=== PATIENT | male | born 1955 | race Caucasian/White ===

== ENCOUNTER → 2017-09-26 | Outpatient (CLI) | payer BC ==
[2017-09-26 12:31] LABS: Anion Gap 6 mmol/L; Blood Urea Nitrogen 25 mg/dL (9-20); Calcium 9.8 mg/dL (8.4-10.2); Carbon Dioxide 32 mmol/L (22-30); Chloride 106 mmol/L (98-107); Glucose 92 mg/dL (74-99); Sodium 144 mmol/L (137-145)
[2017-09-26 12:33] LABS: Potassium 5.5 mmol/L (3.5-5.1)
--- NOTE | 2017-09-26 13:16 | CT ---
EXAMINATION TYPE: CT angio chest DATE OF EXAM: 09/26/2017 COMPARISON: Radiographs 10/24/2009 HISTORY: 62-year-old male dilated aortic root. TECHNIQUE: Contiguous axial scanning of the chest performed without and with IV Contrast, patient inj ected with 100 ml mL of Omnipaque 300. Coronal/sagittal MIP reconstructions performed. 3-D reconstruc tions generated on a dedicated independent workstation. CT DLP: 593.00 mGycm Automated exposure control for dose reduction was used. FINDINGS: Median sternotomy wires are present with mitral annuloplasty ring. No pericardial effusion. Heart is normal size. The aortic root measures 5.6 cm on coronal series 12 image 13. Ascending aorta ectatic at 3.8 cm. Conventional arch vessel branching anatomy. Upper descending thoracic aorta is mildly aneurysmal at 3.5 cm. Mild tortuosity of the descending aorta. Borderline ectasia lower descending thoracic aorta at 2.5 cm. Initial noncontrast series shows no evidence for acute intracerebral hematoma. There is no evidence for aortic dissection. There is moderate left and trace right gynecomastia. Prominent 1 cm right tracheobronchial angle lymph node probably reactive/post inflammatory. Evaluation of the lungs shows mild emphysema and strandy areas of atelectasis or scarring. No focal c onsolidation or pleural effusion otherwise seen. Visualized upper abdomen shows a large 7.5 cm cyst in the right kidney, tiny inferior splenule, a 2.4 cm cystic lesion in the left kidney possibly with some internal septations, and a 1 cm nodular focus of arterial phase enhancement in the central right liver lobe probably flash filling hemangioma or v ascular shunting. Bones: No osseous destructive process. IMPRESSION: 1. Aneurysmal aortic root measuring 5.6 cm on coronal series. 2. 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 3. COPD with mild emphysema. 4. A 2.4 cm cystic lesion in the left kidney may have some internal complexity. Renal ultrasound can further evaluate.
== END | disposition home or self-care (01) ==
LOC: RADCTMAIN 10:59
PROVIDERS: ATTEND Internal Medicine Clinical Cardiac Electrophysiology
DX: I71.2 Thoracic aortic aneurysm, without rupture (principal); J43.9 Emphysema, unspecified; Z98.890 Other specified postprocedural states; Q25.44 Congenital dilation of aorta
CPT/HCPCS: 80048; 71275; 36415; Q9967

== ENCOUNTER 2018-01-07 14:07 | Emergency (ER) | payer BC ==
[2018-01-07] MEDS ORDERED: MORPHINE SULFATE 2 MG/ML SYRINGE IVP STA ×2 (15:22→18:07)
[2018-01-07] MEDS ORDERED: SODIUM CHLORIDE 0.9% 1,000 ML IV ONE (15:22)
[2018-01-07] MEDS ORDERED: SODIUM CHLORIDE 0.9% 1,000 ML IV SCH (15:30)
[2018-01-07 16:03] LABS: Basophils % (A) 0 %; Eosinophils # (A) 0.1 k/uL (0-0.7); Eosinophils % (A) 1 %; HCT 32.7 % (39.0-53.0); Lymphocytes # (A) 0.8 k/uL (1.0-4.8); Lymphocytes % (A) 12 %; MCH 30.8 pg (25.0-35.0); MCHC 33.7 g/dL (31.0-37.0); MCV 91.4 fL (80.0-100.0); Mean Platelet Volume 8.2; Monocytes # (A) 0.5 k/uL (0-1.0); Monocytes % (A) 7 %; Neutrophils # (A) 5.3 k/uL (1.3-7.7); Neutrophils % (A) 79 %; Platelet Count 149 k/uL (150-450); RBC 3.58 m/uL (4.30-5.90); RDW 13.7 % (11.5-15.5); WBC 6.7 k/uL (3.8-10.6)
[2018-01-07 16:18] LABS: INR 1.3 (<1.2); Partial Thromboplastin Time 27.4 sec (22.0-30.0); Prothrombin Time 12.2 sec (9.0-12.0)
[2018-01-07 16:21] LABS: ALT 26 U/L (21-72); AST 43 U/L (17-59); Albumin 3.3 g/dL (3.5-5.0); Alkaline Phosphatase 50 U/L (38-126); Anion Gap 5 mmol/L; Blood Urea Nitrogen 14 mg/dL (9-20); C Reactive Protein 12.7 mg/L (<10.0); Calcium 8.3 mg/dL (8.4-10.2); Carbon Dioxide 29 mmol/L (22-30); Chloride 104 mmol/L (98-107); Glucose 104 mg/dL (74-99); Potassium 4.1 mmol/L (3.5-5.1); Sodium 138 mmol/L (137-145); Total Bilirubin 1.7 mg/dL (0.2-1.3); Total Protein 5.3 g/dL (6.3-8.2)
--- NOTE | 2018-01-07 17:42 | ED ---
Extremity Problem HPI - General Chief complaint: Extremity Problem,Nontraumatic Stated complaint: Poss Blood clot left leg Time Seen by Provider: 01/07/18 15:04 Source: patient, RN notes reviewed, old records reviewed Mode of arrival: wheelchair Limitations: no limitations - History of Present Illness Initial comments: This Patient is a 62-year-old male presents to the emergency department today chief complaint of swelling and pain in his right leg. He had a right knee replacement done at [facility] by Dr. león 2 days ago. He was discharged home yesterday. He states that he called the on-call nurse was seems having pain with swelling and going all the way up his leg and was sent in for further evaluation to rule out blood clot. He was started on Zaroxolyn has had a dose yesterday. He had a dose today as well. He denies any fever or chills. He reports that the knee joint does not seem to be as painful as the pain radiating down the leg. No Fevers or chills. - Related Data Home Medications Medication Instructions Recorded Confirmed Irbesartan/Hydrochlorothiazide 1 each PO 01/07/18 [Avalide 150-12.5 mg Tablet] Rivaroxaban [Xarelto] 10 mg PO DAILY 01/07/18 01/07/18 Tamsulosin HCl [Flomax] 0.4 mg PO 01/07/18 oxyCODONE HCL [OxyIR] 5 mg PO Q4-6H PRN 01/07/18 01/07/18 Previous Rx's Medication Instructions Recorded Ibuprofen [Motrin] 600 mg PO Q8HR PRN #20 tab 01/07/18 Allergies Allergy/AdvReac Type Severity Reaction Status Date / Time No Known Allergies Allergy Verified 01/07/18 14:18 Review of Systems ROS Statement: Those systems with pertinent positive or pertinent negative responses have been documented in the HPI. ROS Other: All systems not noted in ROS Statement are negative. Past Medical History Past Medical History: Hypertension Additional Past Medical History / Comment(s): aortic aneurysm History of Any Multi-Drug Resistant Organisms: None Reported Past Surgical History: Orthopedic Surgery Past Psychological History: No Psychological Hx Reported Smoking Status: Never smoker Past Alcohol Use History: None Reported Past Drug Use History: None Reported General Exam - General Exam Comments Initial Comments: His is a 62-year-old male. Alert and oriented. No significant distress. Limitations: no limitations General appearance: alert, in no apparent distress Head exam: Present: atraumatic, normocephalic, normal inspection Eye exam: Present: normal appearance, PERRL, EOMI. Absent: scleral icterus, conjunctival injection, periorbital swelling ENT exam: Present: normal exam, mucous membranes moist Neck exam: Present: normal inspection. Absent: tenderness, meningismus, lymphadenopathy Respiratory exam: Present: normal lung sounds bilaterally. Absent: respiratory distress, wheezes, rales, rhonchi, stridor Cardiovascular Exam: Present: regular rate, normal rhythm, normal heart sounds. Absent: systolic murmur, diastolic murmur, rubs, gallop, clicks GI/Abdominal exam: Present: soft, normal bowel sounds. Absent: distended, tenderness, guarding, rebound, rigid Extremities exam: Present: full ROM, normal capillary refill. Absent: normal inspection, tenderness, pedal edema, joint swelling, calf tenderness Right Hip exam: Present: normal inspection, full ROM Upper Leg exam: Present: normal inspection, full ROM Knee exam: Present: tenderness (Over the right knee. Palpable cord extending up the thigh.), swelling. Absent: normal inspection (General has dressing over the incision site of the right knee.) Lower Leg exam: Present: tenderness, palpable cord, Homans' sign. Absent: normal inspection Ankle exam: Present: normal inspection, full ROM Foot/Toe exam: Present: normal inspection, full ROM Neurovascular tendon exam: Present: no vascular compromise Back exam: Present: normal inspection Neurological exam: Present: alert, oriented X3, CN II-XII intact Psychiatric exam: Present: normal affect, normal mood Skin exam: Present: warm, dry, intact, normal color. Absent: rash Course Vital Signs 01/07/18 01/07/18 14:14 17:46 Temperature 97.9 F Pulse Rate 72 68 Respiratory 16 18 Rate Blood Pressure 148/69 145/67 O2 Sat by Pulse 97 99 Oximetry Medical Decision Making - Medical Decision Making 8-year-old male presents emergency department today chief complaint of right leg pain and swelling. Was concerned possibly [place]. Recent right knee replacement surgery by Dr. Corrales at [facility]. Ultrasound performed today was negative for DVT. With blood cell count is within normal limits. Vital signs are stable. Does complain of some pain as he is not able to have his doses of pain medicines A by going to different hospitals. Patient informed that the ultrasound shows evidence of a 6 cm cyst. The knee is swollen and somewhat warm. I discussed that he needs follow-up promptly with his health care law specialist. He has any fevers or worsening symptoms he needs return. Discussed starting anti-inflammatory medication as well. We'll give the Patient Motrin. On Tuesday Patient will follow-up with orthopedic. All questions answered return parameters were discussed. - Lab Data Result diagrams: 01/07/18 15:39 01/07/18 15:39 Lab Results 01/07/18 01/07/18 01/07/18 Range/Units 15:39 15:39 15:39 WBC 6.7 (3.8-10.6) k/uL RBC 3.58 L (4.30-5.90) m/uL Hgb 11.0 L (13.0-17.5) gm/dL Hct 32.7 L (39.0-53.0) % MCV 91.4 (80.0-100.0) fL MCH 30.8 (25.0-35.0) pg MCHC 33.7 (31.0-37.0) g/dL RDW 13.7 (11.5-15.5) % Plt Count 149 L (150-450) k/uL Neutrophils % 79 % Lymphocytes % 12 % Monocytes % 7 % Eosinophils % 1 % Basophils % 0 % Neutrophils # 5.3 (1.3-7.7) k/uL Lymphocytes # 0.8 L (1.0-4.8) k/uL Monocytes # 0.5 (0-1.0) k/uL Eosinophils # 0.1 (0-0.7) k/uL Basophils # 0.0 (0-0.2) k/uL PT (9.0-12.0) sec INR (<1.2) APTT (22.0-30.0) sec Sodium 138 (137-145) mmol/L Potassium 4.1 (3.5-5.1) mmol/L Chloride 104 (98-107) mmol/L Carbon Dioxide 29 (22-30) mmol/L Anion Gap 5 mmol/L BUN 14 (9-20) mg/dL Creatinine 0.50 L (0.66-1.25) mg/dL Est GFR (CKD-EPI)AfAm >90 (>60 ml/min/1.73 sqM) Est GFR (CKD-EPI)NonAf >90 (>60 ml/min/1.73 sqM) Glucose 104 H (74-99) mg/dL Plasma Lactic Acid Phillip 1.4 (0.7-2.0) mmol/L Calcium 8.3 L (8.4-10.2) mg/dL Total Bilirubin 1.7 H (0.2-1.3) mg/dL AST 43 (17-59) U/L ALT 26 (21-72) U/L Alkaline Phosphatase 50 (38-126) U/L C-Reactive Protein 12.7 H (<10.0) mg/L Total Protein 5.3 L (6.3-8.2) g/dL Albumin 3.3 L (3.5-5.0) g/dL 01/07/18 Range/Units 15:39 WBC (3.8-10.6) k/uL RBC (4.30-5.90) m/uL Hgb (13.0-17.5) gm/dL Hct (39.0-53.0) % MCV (80.0-100.0) fL MCH (25.0-35.0) pg MCHC (31.0-37.0) g/dL RDW (11.5-15.5) % Plt Count (150-450) k/uL Neutrophils % % Lymphocytes % % Monocytes % % Eosinophils % % Basophils % % Neutrophils # (1.3-7.7) k/uL Lymphocytes # (1.0-4.8) k/uL Monocytes # (0-1.0) k/uL Eosinophils # (0-0.7) k/uL Basophils # (0-0.2) k/uL PT 12.2 H (9.0-12.0) sec INR 1.3 H (<1.2) APTT 27.4 (22.0-30.0) sec Sodium (137-145) mmol/L Potassium (3.5-5.1) mmol/L Chloride (98-107) mmol/L Carbon Dioxide (22-30) mmol/L Anion Gap mmol/L BUN (9-20) mg/dL Creatinine (0.66-1.25) mg/dL Est GFR (CKD-EPI)AfAm (>60 ml/min/1.73 sqM) Est GFR (CKD-EPI)NonAf (>60 ml/min/1.73 sqM) Glucose (74-99) mg/dL Plasma Lactic Acid Phillip (0.7-2.0) mmol/L Calcium (8.4-10.2) mg/dL Total Bilirubin (0.2-1.3) mg/dL AST (17-59) U/L ALT (21-72) U/L Alkaline Phosphatase (38-126) U/L C-Reactive Protein (<10.0) mg/L Total Protein (6.3-8.2) g/dL Albumin (3.5-5.0) g/dL - Radiology Data Radiology results: report reviewed No evidence of DVT within the right lower extremity from the groin to the upper calf. There is a nonvascular 6.4 x 4.5 x 2.3 cm cyst within the right knee. Disposition Clinical Impression: Dean's cyst of knee, History of total right knee replacement Disposition: HOME SELF-CARE Condition: Good Instructions: [place] (ED) Additional Instructions: Patient advised to follow-up with primary care provider. Return to emergency department if any alarming signs or symptoms occur. Patient to follow-up with health care law specialist on Tuesday. Prescriptions: Ibuprofen [Motrin] 600 mg PO Q8HR PRN #20 tab PRN Reason: Pain Is patient prescribed a controlled substance at d/c from ED?: No When asked, does pt state using other controlled substances?: No If prescribed controlled substance>3 days was MAPS reviewed?: No If opioid is for acute pain is fill amount 7 days or less?: No If Rx opioid, was Start Talking consent form obtained?: No Referrals: Hans Lutz MD [Primary Care Provider] - 1-2 days Time of Disposition: 18:08
--- NOTE | 2018-01-07 17:43 | US ---
EXAMINATION TYPE: US venous doppler duplex LE RT DATE OF EXAM: 01/07/2018 3:22 PM COMPARISON: NONE CLINICAL HISTORY: 62-year-old male with Pain. Rt knee replaced . On blood thinners. Redness on thigh SIDE PERFORMED: Right TECHNIQUE: The lower extremity deep venous system is examined utilizing real time linear array sonog jeni with graded compression, doppler sonography and color-flow sonography. FINDINGS: VESSELS IMAGED: External Iliac Vein (EIV) Common Femoral Vein Deep Femoral Vein Greater Saphenous Vein * Femoral Vein Popliteal Vein Small Saphenous Vein * Proximal Calf Veins (* superficial vessels) Right Leg: Negative for DVT. Posterior knee, cystic appearing lesion with internal debris, nonvascu lar- 6.4 x 4.5 x 2.3 cm IMPRESSION: 1. No evidence for DVT within the right lower extremity imaged from the groin to the upper calf. 2. Suggestion of a very complex moderate to large sized Dean's cyst measuring 6.4 cm posterior right knee.
[2018-01-07 17:47] VITALS: RESP 18
[2018-01-07 18:35] VITALS: BP 152/69; PULSE 72; TEMP 98.3
== END 2018-01-07 18:35 | disposition home or self-care (01) ==
LOC: EC 14:07
DX: M71.21 Synovial cyst of popliteal space [Baker], right knee (principal); I10 Essential (primary) hypertension; Z96.651 Presence of right artificial knee joint; Z79.01 Long term (current) use of anticoagulants; Z79.899 Other long term (current) drug therapy
CPT/HCPCS: 99284; 96374; 96376; 96361; 36415; 80053; 83605; 85025; 85610; 85730; 86140; 87040; 93971; J2270